=== PATIENT | female | born 1980 | race Hispanic/Latino ===

== ENCOUNTER → 2019-01-20 20:06 | Outpatient (REF) | payer MEDICARE, SELFPAY ==
[2019-01-20 20:33] LABS: Cholesterol 259 mg/dL (140-199); HDL Cholesterol 40 mg/dL (40-60); LDL Cholesterol Calculated 174 mg/dL (<100); Triglycerides 227 mg/dL (35-150)
== END ==
LOC: LAB 20:06
PROVIDERS: PCP Family Medicine; Visit Provider Physician Assistant Medical
DX: Z13.220 Encounter for screening for lipoid disorders (principal)
CPT/HCPCS: 36415; 80061

== ENCOUNTER 2021-06-29 16:56 | Emergency (ER) | payer MEDICARE, SELFPAY ==
[2021-06-29 17:24] VITALS: BP 137/86; PULSE 104; RESP 18; TEMP 36.3; O2SAT 99; BMI 42.7
--- NOTE | 2021-06-29 17:38 | DI.US.S_ITS ---
PROCEDURE: US PERIPH VENOUS LOW EXTREM RT INDICATIONS: RIGHT CALF LUMP TECHNIQUE: Real-time imaging, as well as color and pulse Doppler interrogation, were performed of the lower extremity deep veins from the inguinal ligament to the popliteal fossa. COMPARISON: None. FINDINGS: The common femoral, femoral and popliteal veins are normally compressible, and free of intraluminal thrombus. Color and pulse Doppler demonstrate normal phasic intraluminal flow. There is normal augmentation response to distal compression maneuver. Greater saphenous vein of the superficial venous system is thrombosed from the level inferior to the knee to the level of the mid calf. IMPRESSION: 1. No evidence of thrombosis involving the deep venous system of the right lower extremity. 2. Occlusive thrombus involving the right greater saphenous vein of the superficial venous system of the right lower extremity. Dictated by: Ann Marie Del Toro MD, PhD on 06/29/2021 at 18:39 Approved by: Ann Marie Del Toro MD, PhD on 06/29/2021 at 18:39
[2021-06-29] MEDS: ACETAMINOPHEN 325 MG TABLET 975 MG PO (19:34)
[2021-06-29] MEDS: APIXABAN 5 MG TABLET 10 MG PO (19:35)
--- NOTE | 2021-06-29 19:36 | ED.EXTPRO ---
HPI - Extremity Problem <Bridget Braker PA-C - Last Filed: 06/29/21 19:57> General Chief complaint: Extremity Problem,Nontraumatic Stated complaint: Poss DVT Time Seen by Provider: 06/29/21 17:32 Source: patient Mode of arrival: Family Vehicle Limitations: no limitations History of Present Illness HPI Narrative: 40-year-old female with past medical history bipolar disorder, varicose veins presents to the ED with 5 days of right calf pain. Patient reports that 1 of the superficial varicose veins started swelling up with pain and redness. Patient denies fever, chills, shortness of breath, chest pain, nausea, vomiting, lightheadedness, syncope. Denies any insect bites or other trauma at the site. Denies history of DVT, exogenous hormone use, prolonged immobilization, recent surgeries. Denies numbness, tingling, weakness. Endorses being able to bear weight and walk. Related Data Home Medications Medication Instructions Recorded Confirmed BusPIRone Hydrochloride (BUSPAR~) 5 mg PO TID #0 11/08/12 albuterol sulfate 2 mg tablet 2 mg PO #0 11/08/12 baclofen 10 mg tablet 10 mg PO QID #0 11/08/12 clonazepam 0.5 mg tablet 1 mg PO BID #0 11/08/12 fluoxetine 40 mg capsule (Prozac) 40 mg PO QDAY #0 11/08/12 gabapentin 600 mg tablet 600 mg PO #0 11/08/12 (Neurontin) ondansetron 8 mg disintegrating 8 mg PO TID #0 11/08/12 tablet (Zofran ODT) Previous Rx's Medication Instructions Recorded apixaban 5 mg (74 tabs) tablets in 10 mg PO PER PKG DIR 7 Days #14 ea 06/29/21 a dose pack (Eliquis DVT-PE Treat 30D Start) Allergies Allergy/AdvReac Type Severity Reaction Status Date / Time trazodone AdvReac Nightmare Verified 06/29/21 17:30 Review of Systems <Bridget Barker PA-C - Last Filed: 06/29/21 19:57> Constitutional Constitutional: Denies chills, Denies fever(s), Denies frequent falls, Denies lethargy and Denies weakness ENT Ears, Nose, Mouth, and Throat: Denies dizziness Cardiovascular Cardiovascular: Denies chest pain, Denies irregular heart rhythm, Denies lightheadedness, Denies palpitations, Denies dyspnea, Denies dyspnea on exertion and Denies orthopnea Respiratory Respiratory: Denies cough, Denies dyspnea, Denies dyspnea on exertion and Denies wheezing Gastrointestinal Gastrointestinal: Denies abdominal pain, Denies change in bowel habits, Denies diarrhea, Denies nausea and Denies vomiting Musculoskeletal Musculoskeletal: Denies numbness Comments: R calf pain, swelling. No numbness, tinglnig, weakness Integumentary/Breasts Skin/Breast: Denies pruritus, Denies erythema, Denies rash and Denies wounds Neurologic Neurologic: Denies behavioral changes, Denies confusion, Denies dizziness, Denies frequent falls, Denies numbness and Denies weakness Psychiatric Psychiatric: Denies behavioral changes and Denies confusion Endocrine Endocrine: Denies palpitations Hematologic/Lymphatic Hematologic/Lymphatic: Denies easy bruising Allergic/Immunologic Allergic/Immunologic: Denies wheezing Patient History <Bridget Barker PA-C - Last Filed: 06/29/21 19:57> Social History Smoking Status: Current every day smoker Smoking Status: Current every day smoker tobacco type: cigarettes alcohol intake frequency: 0-2 drinks per day Substance Use Type: does not use Exam <Bridget Barker PA-C - Last Filed: 06/29/21 19:57> Initial Vital Signs Initial Vital Signs: Vital Signs Temperature 97.4 F L 06/29/21 17:24 Pulse Rate 104 H 06/29/21 17:24 Respiratory Rate 18 06/29/21 17:24 Blood Pressure 137/86 06/29/21 17:24 Pulse Oximetry 99 06/29/21 17:24 Const General: cooperative Chest Chest: normal inspection of the chest Resp Effort & Inspection: normal respiratory effort, able to speak in complete sentences, no respiratory distress and no use of accessory muscles Auscultation: clear to auscultation bilaterally, no rales, no rhonchi and no wheezes Cardio Rate: regular rate Rhythm: regular rhythm Heart Sounds: no click, no gallops, no murmurs and no rubs Pulses: normal peripheral pulses GI Inspection: non-distended Palpation: soft, no hepatosplenomegaly, No guarding, No pulsatile mass and No tender Auscultation: normal bowel sounds Skin General: no rashes or lesions noted, No jaundice and No petechiae Neuro General: patient alert, patient oriented x3, gait normal and no focal motor deficits Speech: speech normal Extrem General: full ROM, no clubbing, cyanosis or edema, no pedal edema and no calf tenderness Other: Swelling, erythema, redness of medial right calf. No discharge. Neurovascularly intact. Cap refill less than 2 seconds. Psych Appearance: well kempt Mental Status: mental status grossly normal Attitude: cooperative Thought Content: normal and suicidality Judgment: judgment good <Travis Briggs DO - Last Filed: 06/30/21 00:35> Initial Vital Signs Initial Vital Signs: Vital Signs Temperature 97.4 F L 06/29/21 17:24 Pulse Rate 104 H 06/29/21 17:24 Respiratory Rate 18 06/29/21 17:24 Blood Pressure 137/86 06/29/21 17:24 Pulse Oximetry 99 06/29/21 17:24 Course <Bridget Barker PA-C - Last Filed: 06/29/21 19:57> Course Course Narrative: Ultrasound of the right lower extremity shows an occlusive thrombus of the right greater saphenous vein for from the level of the inferior to the knee to the level of the mid calf. Started anticoagulation with Eliquis, discharge home with PCP follow-up, prescription for Eliquis. Return ED precautions discussed with patient. Orders Ordered: ED Orders 06/29/21 17:38 US periph venous low extrem rt Stat Discontinued Medications Acetaminophen (Acetaminophen 325 Mg Tablet) 975 mg PO NOW ONE Stop: 06/29/21 19:11 Last Admin: 06/29/21 19:34 Dose: 975 mg Documented by: DAQUAN Apixaban (Apixaban 5 Mg Tablet) 10 mg PO NOW ONE Stop: 06/29/21 19:04 Last Admin: 06/29/21 19:35 Dose: 10 mg Documented by: DAQUAN Ibuprofen (Ibuprofen 400 Mg Tablet) 800 mg PO NOW ONE Stop: 06/29/21 19:11 Last Admin: 06/29/21 19:12 Dose: Not Given Documented by: DAQUAN Vital Signs Vital signs: Vital Signs - 8 hr 06/29/21 17:24 06/29/21 19:46 Temperature 97.4 F L Pulse Rate 104 H 86 Respiratory Rate 18 16 Blood Pressure 137/86 118/56 L Pulse Oximetry 99 91 <Travis Briggs DO - Last Filed: 06/30/21 00:35> Orders Ordered: ED Orders 06/29/21 17:38 perip venous low extrem rt Stat Discontinued Medications Acetaminophen (Acetaminophen 325 Mg Tablet) 975 mg PO NOW ONE Stop: 06/29/21 19:11 Last Admin: 06/29/21 19:34 Dose: 975 mg Documented by: DAQUAN Apixaban (Apixaban 5 Mg Tablet) 10 mg PO NOW ONE Stop: 06/29/21 19:04 Last Admin: 06/29/21 19:35 Dose: 10 mg Documented by: DAQUAN Ibuprofen (Ibuprofen 400 Mg Tablet) 800 mg PO NOW ONE Stop: 06/29/21 19:11 Last Admin: 06/29/21 19:12 Dose: Not Given Documented by: DAQUAN Vital Signs Vital signs: Vital Signs - 8 hr 06/29/21 17:24 06/29/21 19:46 Temperature 97.4 F L Pulse Rate 104 H 86 Respiratory Rate 18 16 Blood Pressure 137/86 118/56 L Pulse Oximetry 99 91 MDM - Extremity (Nontraumatic) <Bridget Barker PA-C - Last Filed: 06/29/21 19:57> Medical Records Attestation: I reviewed the patient's medical records. Imaging Data US - DVT: Radiologist's Impression: PROCEDURE: US [facility] VENOUS LOW EXTREM RT INDICATIONS: RIGHT CALF LUMP TECHNIQUE: Real-time imaging, as well as color and pulse Doppler interrogation, were performed of the lower extremity deep veins from the inguinal ligament to the popliteal fossa. COMPARISON: None. FINDINGS: The common femoral, femoral and popliteal veins are normally compressible, and free of intraluminal thrombus. Color and pulse Doppler demonstrate normal phasic intraluminal flow. There is normal augmentation response to distal compression maneuver. Greater saphenous vein of the superficial venous system is thrombosed from the level inferior to the knee to the level of the mid calf. IMPRESSION: 1. No evidence of thrombosis involving the deep venous system of the right lower extremity. 2. Occlusive thrombus involving the right greater saphenous vein of the superficial venous system of the right lower extremity. Dictated by: Ann Marie Del Toro MD, PhD on 06/29/2021 at 18:39 Approved by: Ann Marie Del Toro MD, PhD on 06/29/2021 at 18:39 [facility] Narrative Medical decision making narrative: 40-year-old female with past medical history bipolar disorder, varicose veins presents to the ED with 5 days of right calf pain. Concern for DVT versus superficial venous thrombosis versus abscess versus cellulitis. We will order ultrasound of the right lower extremity. Will reassess. Likely discharge home with PCP follow-up. Discharge Plan Departure Patient Disposition: Home Clinical Impression: Acute superficial venous thrombosis of right lower extremity Instructions: DI for Deep Vein Thrombosis Activity Restrictions/Additional Instructions: You have been diagnosed with a superficial venous thrombosis in the right lower leg, and do have been started on anticoagulation with Eliquis. You are to take 10 mg of Eliquis twice daily for 7 days, followed by 5 mg twice daily. For follow-up with your primary care provider as soon as possible for continued care. You may take Tylenol, use compression stockings for pain relief. Prescriptions: New Eliquis DVT-PE Treat 30D Start 5 mg (74 tabs) tablets,dose pack 10 mg PO PER PKG DIR 7 Days Qty: 14 RF: 0 No Action fluoxetine [Prozac] 40 MG capsule 40 mg PO QDAY Qty: 0 RF: 0 ondansetron [Zofran ODT] 8 MG tablet,disintegrating 8 mg PO TID Qty: 0 RF: 0 baclofen 10 MG tablet 10 mg PO QID Qty: 0 RF: 0 gabapentin [Neurontin] 600 MG tablet 600 mg PO Qty: 0 RF: 0 clonazepam 0.5 MG tablet 1 mg PO BID Qty: 0 RF: 0 BusPIRone Hydrochloride (BUSPAR~) 5 mg PO TID Qty: 0 RF: 0 albuterol sulfate 2 MG tablet 2 mg PO Qty: 0 RF: 0 Referrals: Radha Whitley FNP-BC [Primary Care Provider] - <Travis Briggs DO - Last Filed: 06/30/21 00:35> Cosign ED Attending Monikaature Attestation: I was immediately available in the department for consultation. This documentation has been reviewed and I agree with assessment and plan. Supervised by Travis Briggs DO
[2021-06-29 19:46] VITALS: BP 118/56; PULSE 86; RESP 16; O2SAT 91
== END 2021-06-29 19:47 | disposition home or self-care (01) ==
PROVIDERS: Emergency Provider Student in an Organized Health Care Education/Training Program; PCP Nurse Practitioner Family
DX: I82.811 Embolism and thrombosis of superficial veins of right lower extremity (principal)
CPT/HCPCS: 93971; 99283

== ENCOUNTER 2021-07-01 01:10 | Emergency (ER) | payer MEDICARE, MEDICAID, SELFPAY ==
[2021-07-01 01:45] VITALS: BP 118/57; PULSE 92; RESP 16; TEMP 36.6; O2SAT 99; BMI 41.3
--- NOTE | 2021-07-01 02:06 | ED.LOWEXIN ---
HPI - Extremity Injury (Lower) General Chief Complaint: Extremity Injury, Lower Stated Complaint: has dvt clot that's getting worse Time Seen by Provider: 07/01/21 02:04 Source: patient Mode of arrival: Ambulatory History of Present Illness HPI Narrative: Woman with history of anxiety, bipolar disorder and asthma diagnosed yesterday with the superficial saphenous thrombophlebitis of the right lower extremity and started on Eliquis returns today complaining of increased pain and concerns that the clot is spreading. Today she did have a compression sock but found that it was quite tight through most of the day. She was trying Tylenol and ice but the pain continues to worsen. 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 After starting Eliquis she is no longer able to use nonsteroidals. Related Data Home Medications Medication Instructions Recorded Confirmed BusPIRone Hydrochloride (BUSPAR~) 5 mg PO TID #0 11/08/12 albuterol sulfate 2 mg tablet 2 mg PO #0 11/08/12 baclofen 10 mg tablet 10 mg PO QID #0 11/08/12 clonazepam 0.5 mg tablet 1 mg PO BID #0 11/08/12 fluoxetine 40 mg capsule (Prozac) 40 mg PO QDAY #0 11/08/12 gabapentin 600 mg tablet 600 mg PO #0 11/08/12 (Neurontin) ondansetron 8 mg disintegrating 8 mg PO TID #0 11/08/12 tablet (Zofran ODT) Previous Rx's Medication Instructions Recorded apixaban 5 mg (74 tabs) tablets in 10 mg PO PER PKG DIR 7 Days #14 ea 06/29/21 a dose pack (Eliquis DVT-PE Treat 30D Start) tramadol 50 mg tablet 50 mg PO Q6H PRN #10 tab 07/01/21 Allergies Allergy/AdvReac Type Severity Reaction Status Date / Time trazodone AdvReac Nightmare Verified 06/29/21 17:30 Review of Systems Review of Systems Narrative: Pertinent positive and negative findings as per HPI Remainder of review of systems is otherwise unremarkable for Constitutional: Fevers, chills, weakness ENT: No sore throat, neck pain, ear pain CV: Chest pain, palpitations, Respiratory: Cough, wheeze, dyspnea GI: Nausea, vomiting, diarrhea, Patient History Medical History (Updated 07/01/21 @ 03:14 by Shelby Milian MD) Anxiety Bipolar 1 disorder Social History Smoking Status: Current every day smoker Smoking Status: Current every day smoker tobacco type: cigarettes alcohol intake frequency: 0-2 drinks per day Substance Use Type: does not use Exam Narrative Exam Narrative: General: Alert appropriate in no acute distress Respiratory: Able to speak in full sentences, no obvious respiratory distress Skin: No obvious rashes, warm and dry Neurologic: Grossly intact no obvious asymmetries or abnormalities Psych: appropriate insight and affect, cooperative Extremity: Superficial thrombophlebitis of the right lower extremity without cellulitis. Initial Vital Signs Initial Vital Signs: Vital Signs Temperature 97.8 F 07/01/21 01:45 Pulse Rate 92 H 07/01/21 01:45 Respiratory Rate 16 07/01/21 01:45 Blood Pressure 118/57 L 07/01/21 01:45 Pulse Oximetry 99 07/01/21 01:45 Course Orders Ordered: Discontinued Medications Acetaminophen (Acetaminophen 325 Mg Tablet) 650 mg PO Q4HR PRN PRN Reason: Fever/Mild Pain (1-3) Last Admin: 07/01/21 02:35 Dose: 650 mg Documented by: Tramadol HCl (Tramadol 50 Mg Tablet) 50 mg PO NOW ONE Stop: 07/01/21 02:21 Last Admin: 07/01/21 02:36 Dose: 50 mg Documented by: Vital Signs Vital signs: Vital Signs - 8 hr 07/01/21 01:45 Temperature 97.8 F Pulse Rate 92 H Respiratory Rate 16 Blood Pressure 118/57 L Pulse Oximetry 99 MDM - Extremity Injury (Lower) MDM Narrative Medical decision making narrative: 40-year-old woman with superficial thrombophlebitis. Increased concerns and pain. Reviewed anticipated course of recovery as well as pain and swelling expectations. Recommended tramadol and Tylenol for the 1st couple of days, continued compression socks, heat and gentle massage. Reassured her that these clots were not associated with pulmonary emboli, strokes or heart attacks. Questions were answered and she is safe for home discharge Discharge Plan Departure Patient Disposition: Home Clinical Impression: Acute superficial venous thrombosis of right lower extremity Activity Restrictions/Additional Instructions: Thank you for coming in today You have a superficial thrombophlebitis, a blood clot in the superficial venous system of your leg. These are not the type of clots that will cause blood clots in your lungs, heart attacks or strokes. They do hurt however. Using the compression sock is your able to tolerate, elevating her leg as your able to tolerate are all helpful. Please try heat to the area to try to help break down the blood clot. With the swelling that you are having am not surprised that there was a bit more pain in your upper thigh. The Eliquis that you are on helps prevent the clot from growing. You can use Tylenol for pain control and to this we can add tramadol. Taking 2 Tylenol and 1 tramadol together should be helpful with pain. While you are on the blood thinner you cannot take medications like aspirin, ibuprofen, Motrin, Aleve. It will take a bit of time for this blood clot to breakdown but the pain will continue to improve. Prescriptions: New tramadol 50 mg tablet 50 mg PO Q6H PRN (Reason: pain) Qty: 10 RF: 0 No Action fluoxetine [Prozac] 40 MG capsule 40 mg PO QDAY Qty: 0 RF: 0 ondansetron [Zofran ODT] 8 MG tablet,disintegrating 8 mg PO TID Qty: 0 RF: 0 baclofen 10 MG tablet 10 mg PO QID Qty: 0 RF: 0 gabapentin [Neurontin] 600 MG tablet 600 mg PO Qty: 0 RF: 0 clonazepam 0.5 MG tablet 1 mg PO BID Qty: 0 RF: 0 BusPIRone Hydrochloride (BUSPAR~) 5 mg PO TID Qty: 0 RF: 0 albuterol sulfate 2 MG tablet 2 mg PO Qty: 0 RF: 0 Eliquis DVT-PE Treat 30D Start 5 mg (74 tabs) tablets,dose pack 10 mg PO PER PKG DIR 7 Days Qty: 14 RF: 0 Referrals: Radha Whitley FNP-HEATHER [Primary Care Provider] -
[2021-07-01] MEDS: ACETAMINOPHEN 325 MG TABLET 650 MG PO (02:35)
[2021-07-01] MEDS: TRAMADOL 50 MG TABLET PO (02:36)
== END 2021-07-01 02:43 | disposition home or self-care (01) ==
PROVIDERS: Emergency Provider Emergency Medicine; PCP Nurse Practitioner Family
DX: I82.811 Embolism and thrombosis of superficial veins of right lower extremity (principal); Z79.01 Long term (current) use of anticoagulants
CPT/HCPCS: 99283

== ENCOUNTER → 2021-07-09 09:15 | Outpatient (CLI) | payer MEDICARE, SELFPAY ==
[2021-07-09 20:21] LABS: Add Manual Diff / Slide Review NO; Basophils Absolute Auto 100 /uL (0-100); Basophils Percent Auto 0.6 % (0-2); Eosinophils Absolute Auto 500 /uL (0-450); Eosinophils Percent Auto 3.3 % (2-4); Hematocrit 44.7 % (36-46); Hemoglobin 14.9 g/dL (12.0-16.0); Lymphocytes Absolute Auto 3200 /uL (1100-4500); Lymphocytes Percent Auto 22.4 % (25-40); Mean Corpuscular HGB Conc 33.4 % (30-36); Mean Corpuscular Hemoglobin 29.9 PG (26-34); Mean Corpuscular Volume 89.3 fL (80-100); Monocytes Absolute Auto 500 /uL (0-900); Monocytes Percent Auto 3.4 % (3-14); Neutrophils Absolute Auto 10000 /uL (1500-7000); Neutrophils Percent Auto 70.3 % (50-75); Platelet Count 279 X10^3/uL (150-400); Red Cell Distribution Width 14.1 % (11.6-14.8); White Blood Cell Count 14.3 X10^3/uL (4.5-11.0)
[2021-07-09 20:30] LABS: Alanine Aminotransferase 22 IU/L (<35); Albumin 3.8 g/dL (3.5-5.0); Albumin Globulin Ratio 1.2 (1.0-2.8); Alkaline Phosphatase 113 U/L (38-126); Aspartate Aminotransferase 22 IU/L (14-36); BUN Creatinine Ratio 29.7 (6-22); Bilirubin Total 0.4 mg/dL (0.2-1.3); Blood Urea Nitrogen 22 mg/dL (7-17); Calcium 9.3 mg/dL (8.4-10.2); Carbon Dioxide 25 mmol/L (22-32); Chloride 104 mmol/L (98-107); Estimated Glomerular Filt Rate > 60.0 mL/min (>60); Globulin 3.3 g/dL (1.7-4.1); Glucose 115 mg/dL (70-100); HEMOLYSIS < 15 (0-50); Potassium 3.9 mmol/L (3.4-5.1); Sodium 136 mmol/L (137-145); Total Protein 7.1 g/dL (6.3-8.2)
[2021-07-12 14:55] LABS: Factor VIII Activity, Clotting 112 % (56-140)
== END ==
PROVIDERS: PCP Nurse Practitioner Family; Visit Provider Family Medicine
DX: S62.308A Unspecified fracture of other metacarpal bone, initial encounter for closed fracture (principal); I82.811 Embolism and thrombosis of superficial veins of right lower extremity; E78.5 Hyperlipidemia, unspecified
CPT/HCPCS: 80053; 81241; 83036; 85025; 85240

== ENCOUNTER 2022-07-22 20:00 | Emergency (ER) | payer MEDICARE, MEDICAID, SELFPAY ==
[2022-07-22 20:12] VITALS: BP 151/73; PULSE 96; RESP 20; TEMP 36.9; O2SAT 97; BMI 41.0
--- NOTE | 2022-07-22 20:20 | DI.US.S_ITS ---
PROCEDURE: US PERIPH VENOUS LOW EXTREM LT INDICATIONS: r/o DVT TECHNIQUE: Real-time imaging, as well as color and pulse Doppler interrogation, were performed of the lower extremity deep veins from the inguinal ligament to the popliteal fossa. COMPARISON: None. FINDINGS: The common femoral, femoral and popliteal veins are normally compressible, and free of intraluminal thrombus. Color and pulse Doppler demonstrate normal phasic intraluminal flow. There is normal augmentation response to distal compression maneuver. IMPRESSION: 1. No evidence of deep venous thrombosis within the left lower extremity. Dictated by: Yobani Olivia M.D. on 07/22/2022 at 22:40 Approved by: Yobani Olivia M.D. on 07/22/2022 at 22:41
--- NOTE | 2022-07-22 20:34 | PC.NURSE ---
pt states after getting the covid vaccine one year ago, she started having blood clots. she was put on eliquis which she has stopped taking in the last 3 weeks because she is tired of having to take it. she was told it would be for 3 months only and it has now been a year. pt states she gets blood clots in her saphenous vein on her right leg and today she is having the same symptoms on her left leg. there is a raised varicose vein along on the inner aspect of the calf with some bruising distally. it is not warm to the touch or red.
--- NOTE | 2022-07-22 21:19 | ED.EXTPRO ---
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 She was diagnosed here 1 year ago thought to be from Moderna COVID vaccine. She said that she has had 2 clot she has been seen by Hematology she has been on Eliquis. However she was tired of being on Eliquis and stopped Eliquis about 6 weeks. The last 3 days she has had some leg cramping and pain. Wants to make sure that there is no other clot. She does have fibromyalgia she has chronic ongoing pain. She denies any chest pain shortness of breath or any other symptoms. Related Data Home Medications Medication Instructions Recorded Confirmed apixaban 5 mg tablet (Eliquis) See Rx Instructions .Route .COMPLEX 07/10/21 07/17/21 albuterol sulfate 2.5 mg/3 mL 2.5 mg inhalation Q4-6H PRN 07/17/21 07/17/21 (0.083 %) solution for nebulization gabapentin 600 mg tablet 300 mg PO TID #0 tabs 07/17/21 07/17/21 (Neurontin) Previous Rx's Medication Instructions Recorded diazepam 10 mg tablet (Valium) 10 mg PO BEDTIME PRN anxiety 30 07/09/21 days #15 tabs atorvastatin 40 mg tablet (Lipitor) 40 mg PO DAILY #90 tabs 07/17/21 Allergies Allergy/AdvReac Type Severity Reaction Status Date / Time trazodone AdvReac Nightmare Verified 06/29/21 17:30 Review of Systems Review of Systems Narrative: GENERAL: Denies chills,fever HEENT: Denies throat pain RESPIRATORY: Denies dyspnea, cough, wheezing CARDIOVASCULAR: Denies chest pain, palpitations GASTROINTESTINAL: Denies nausea, vomiting MUSCULOSKELETAL: See HPI SKIN: No rash, no laceration, no pruritus NEUROLOGIC: Denies weakness, dizziness, headache, numbness 8 point review of systems is negative except for those stated above and HPI Patient History Medical History Anxiety Bipolar 1 disorder DVT (deep venous thrombosis) Social History Smoking Status: Current every day smoker Smoking Status: Current every day smoker tobacco type: cigarettes alcohol intake frequency: 0-2 drinks per day Substance Use Type: marijuana Exam Initial Vital Signs Initial Vital Signs: Vital Signs Temperature 98.5 F 07/22/22 20:12 Pulse Rate 96 H 07/22/22 20:12 Respiratory Rate 20 07/22/22 20:12 Blood Pressure 151/73 H 07/22/22 20:12 Pulse Oximetry 97 07/22/22 20:12 Oxygen Delivery Method 07/22/22 20:12 GENERAL: Alert pleasant 42-year-old female and in no acute distress. HEENT: Head atraumatic,EOMI, pupils reactive, face symmetric, moist mucous membranes CARDIOVASCULAR: Regular rate and rhythm without murmurs, rubs or gallops. RESPIRATORY: Breath sounds equal bilaterally, no wheezes rales or rhonchi. EXTREMITIES: Normal range of motion, no clubbing or edema. Neurovascularly intact Lower extremities she actually does have some darkening along the vein of her right leg. She has varicose veins on the left. No significant calf pain or swelling. No erythema. Bilateral strong distal pedal pulses. NEUROLOGICAL: Alert and oriented x4. SKIN: Warm, dry, no laceration, no petechiae, no rashes or lesions. Course Orders Ordered: ED Orders 07/22/22 20:20 US periph venous low extrem lt Stat Discontinued Medications Cyclobenzaprine HCl (Cyclobenzaprine 10 Mg Prepack) 1 bottle [facility] [place] [facility] Stop: 07/22/22 21:43 Last Admin: 07/22/22 21:57 Dose: 1 bottle Documented By: NR Vital Signs Vital signs: Vital Signs - 8 hr 07/22/22 20:12 Temperature 98.5 F Pulse Rate 96 H Respiratory Rate 20 Blood Pressure 151/73 H Pulse Oximetry 97 Oxygen Delivery Method Room Air MDM - Extremity (Nontraumatic) Imaging Data US - DVT: Radiologist's Impression: Ultrasound Report Signed Patient: Cara Bone MR#: [id number] : 1980 Acct:[id number] Age/Sex: 42 / F Date of Service: 07/22/22 Loc: ED Accession Number: [id number] ?? Procedure: US periph venous low extrem lt Ordering Provider: Blanca Huntley D.O. PROCEDURE:? US PERIPH VENOUS LOW EXTREM LT ? INDICATIONS:? r/o DVT ? TECHNIQUE:? Real-time imaging, as well as color and pulse Doppler interrogation, were performed of the lower extremity deep veins from the inguinal ligament to the popliteal fossa.? ? COMPARISON:? None. ? FINDINGS:? The common femoral, femoral and popliteal veins are normally compressible, and free of intraluminal thrombus.? Color and pulse Doppler demonstrate normal phasic intraluminal flow.? There is normal augmentation response to distal compression maneuver. ? ? IMPRESSION:? ? 1. No evidence of deep venous thrombosis within the left lower extremity. ? ? Dictated by: Yobani Olivia M.D. on 07/22/2022 at 22:40 ? ? Approved by: Yobani Olivia M.D. on 07/22/2022 at 22:41 ? MDM Narrative Medical decision making narrative: The patient has history of superficial thrombosis she stop taking her Eliquis 6 weeks ago. Today she is having pain. She has no significant calf pain or swelling in either leg. Ultrasound is negative for DVT today. She is requesting muscle relaxer such as cyclobenzaprine which I am happy to give her. She is not wanting any pain medication. At this he can follow-up with her providers and discussion of her plan and treatment. Discharge Plan Departure Patient Disposition: Home Clinical Impression: Leg muscle spasm Instructions: DI for Muscle Spasm Activity Restrictions/Additional Instructions: *You have been diagnosed with muscle and leg spasm *What to do: At this time no clot is found. Please discuss with your oncologist about your Eliquis. *Continue to take medications as directed Ibuprofen 800 mg every 8 hours if needed for [id number] pain (as long as you are not taking Eliquis) Flexeril 5 mg every 8 hours if needed for muscle spasm *Follow up with your primary care provider in 2-3 days or call [phone] *Return to ER if you should have an swelling redness or any new, worsening or concerning symptoms Prescriptions: No Action Eliquis 5 mg tablet See Rx Instructions .ROUTE .COMPLEX Rx Instructions: 2 tablets BID for 7 days then 1 tablet BID for 23 days; gabapentin [Neurontin] 600 mg tablet 300 mg PO TID Qty: 0 diazepam [Valium] 10 mg tablet 10 mg PO BEDTIME PRN (Reason: anxiety) 30 Days Qty: 15 2RF albuterol sulfate 2.5 mg /3 mL (0.083 %) solution for nebulization 2.5 mg inhalation Q4-6H PRN atorvastatin [Lipitor] 40 mg tablet 40 mg PO DAILY Qty: 90 1RF Referrals: Jesse Davies DO [Primary Care Provider] - Visit Report Forms: Patient Portal/API
[2022-07-22] MEDS: CYCLOBENZAPRINE 10 MG PREPACK 1 BOTTLE MISC (21:57)
== END 2022-07-22 23:10 | disposition home or self-care (01) ==
PROVIDERS: Emergency Provider Emergency Medicine; PCP Family Medicine
DX: M62.831 Muscle spasm of calf (principal)
CPT/HCPCS: 93971; 99281; 99283

== ENCOUNTER 2023-04-16 18:26 | Emergency (ER) | payer MEDICARE, MEDICAID, SELFPAY ==
[2023-04-16 18:28] VITALS: BP 137/79; PULSE 108; RESP 97; TEMP 36.7; BMI 41.3
--- NOTE | 2023-04-16 18:35 | DI.RAD.S_ITS ---
PROCEDURE: XR CHEST 1V INDICATIONS: Shortness of breath TECHNIQUE: One view of the chest was acquired. COMPARISON: None. FINDINGS: Surgical changes and devices: None. Lungs and pleura: Diffuse interstitial prominence. Mild loss of vascular distinctness. Mild central vascular congestion. No focal consolidation. No pneumothorax or substantial pleural effusion. Mediastinum: Mediastinal contours appear normal. Heart size is enlarged. Bones and chest wall: No suspicious bony lesions. Overlying soft tissues appear unremarkable. IMPRESSION: Mild cardiomegaly with findings suggestive of mild pulmonary edema/CHF. An infectious or inflammatory process may have a similar appearance if clinically appropriate. No focal consolidation. Dictated by: Zenon Dent M.D. on 04/16/2023 at 19:15 Approved by: Zenon Dent M.D. on 04/16/2023 at 19:15
--- NOTE | 2023-04-16 18:44 | ED_ITS ---
HPI - SOB/Dyspnea General Chief Complaint: Shortness of Breath/Dyspnea Stated Complaint: SOB Time Seen by Provider: 04/16/23 18:42 Source: patient Mode of arrival: Ambulatory History of Present Illness HPI Narrative: 42-year-old female daily smoker with known right lower extremity DVT, hyperlipidemia, seasonal allergies presents with shortness of breath and cough that has been present since the beginning of March. She denies any fever or chills. She is had no trauma or injury. She has had prior DVTs were thought to be related to COVID vaccines. She had presented to her primary care provider with a chief complaint of swelling in her lower extremities, had a positive D- dimer and ultrasound confirming a nonocclusive DVT in her right lower extremity and has been on apixaban. She presents today under circumstances as noted for evaluation. She denies chest pain but has had some burning in her chest and metallic taste in the back of her mouth that seems to improve with [id number] antacids for the better part of a week. She is had multiple rounds of antibiotics to treat this cough, also 2 rounds of steroids. She denies weight gain, exertional symptoms, exercise intolerance. She is had runny nose, nasal congestion, bilateral ear fullness Related Data Home Medications Medication Instructions Recorded Confirmed apixaban 5 mg tablet (Eliquis) See Rx Instructions .Route .COMPLEX 07/10/21 07/17/21 albuterol sulfate 2.5 mg/3 mL 2.5 mg inhalation Q4-6H PRN 07/17/21 07/17/21 (0.083 %) solution for nebulization gabapentin 600 mg tablet 300 mg PO TID #0 tabs 07/17/21 07/17/21 (Neurontin) Previous Rx's Medication Instructions Recorded diazepam 10 mg tablet (Valium) 10 mg PO BEDTIME PRN anxiety 30 07/09/21 days #15 tabs atorvastatin 40 mg tablet (Lipitor) 40 mg PO DAILY #90 tabs 07/17/21 furosemide 40 mg tablet (Lasix) 40 mg PO DAILY #4 tabs 04/16/23 Allergies Allergy/AdvReac Type Severity Reaction Status Date / Time shellfish derived Allergy Swelling Verified 04/16/23 18:35 of Lip/Tongue/Throat trazodone AdvReac Nightmare Verified 06/29/21 17:30 Review of Systems Review of Systems Narrative: GENERAL: See HPI HEENT: See HPI RESPIRATORY: See HPI CARDIOVASCULAR: See HPI GASTROINTESTINAL: Denies nausea, vomiting, abdominal pain, diarrhea, constipation, melena. : Denies dysuria, frequency, incontinence, hematuria, urinary retention. MUSCULOSKELETAL: denies weakness, joint pain, or bony pain SKIN: Denies rash, skin lesions, or other NEUROLOGIC: Denies weakness, headache, numbness, change in speech, confusion, seizures, incoordination. PSYCHIATRIC: No concerning psychosocial issues. 12 point review of systems is negative except for those stated above Patient History Medical History Anxiety Bipolar 1 disorder DVT (deep venous thrombosis) Social History Smoking Status: Current every day smoker Smoking Status: Current every day smoker tobacco type: cigarettes alcohol intake frequency: 0-2 drinks per day Substance Use Type: does not use Exam Narrative Exam Narrative: GENERAL: [42] year old patient appears stated age. Well-developed patient, in mild distress. No hypoxemia or significant work of breathing HEAD: Atraumatic. Normocephalic. EYES: Pupils equal round and reactive. Extraocular motions intact. No scleral icterus. No injection or drainage. ENT: Nose without bleeding, purulent drainage. Throat without erythema, tonsillar hypertrophy or exudate. Airway patent. NECK: Trachea midline. Non tender CARDIOVASCULAR: Regular rate and rhythm without murmurs, gallops, or rubs. RESPIRATORY: No tachypnea, use of accessory muscles. Faint crackles noted in bases, no hypoxemia GASTROINTESTINAL: Abdomen soft, non-tender, nondistended. EXTREMITIES: 1+ pitting edema bilateral lower extremities BACK: Nontender without deformity or crepitance. No flank tenderness. NEURO: AOx3. SKIN: No rash or erythema of visible areas Initial Vital Signs Initial Vital Signs: Vital Signs Temperature 98.1 F 04/16/23 18:28 Pulse Rate 108 H 04/16/23 18:28 Respiratory Rate 97 H 04/16/23 18:28 Blood Pressure 137/79 04/16/23 18:28 Oxygen Delivery Method Room Air 04/16/23 18:28 Course Orders Ordered: Discontinued Medications Albuterol/Ipratropium (Albuterol/Ipratropium 3 Ml Ampul) 3 ml INH NOW ONE Stop: 04/16/23 20:23 Last Admin: 04/16/23 20:28 Dose: 3 ml Documented By: JOSELO Furosemide (Furosemide 40 Mg/4 Ml Vial) 40 mg IV NOW ONE Stop: 04/16/23 21:03 Last Admin: 04/16/23 21:28 Dose: 40 mg Documented By: PHILIPP Vital Signs Vital signs: Vital Signs - 8 hr 04/16/23 18:28 04/16/23 20:28 04/16/23 20:46 Temperature 98.1 F Pulse Rate 108 H 90 Respiratory Rate 97 H 16 Blood Pressure 137/79 137/63 Pulse Oximetry 96 Oxygen Delivery Method Room Air Room Air Room Air MDM - SOB/Dyspnea Lab Data 04/16/23 19:00 04/16/23 19:00 Labs: Lab Results 04/16/23 04/16/23 04/16/23 Range/Units 19:00 19:00 19:00 WBC 11.6 H (4.5-11.0) X10^3/uL RBC 4.50 (4.0-5.2) X10^6/uL Hgb 13.6 (12.0-16.0) g/dL Hct 38.9 (36-46) % MCV 86.4 (80-100) fL MCH 30.2 (26-34) PG MCHC 34.9 (30-36) % RDW 13.7 (11.6-14.8) % Plt Count 222 (150-400) X10^3/uL Neut % (Auto) 64.3 (50-75) % Lymph % (Auto) 24.2 L (25-40) % [place] % (Auto) 5.4 (3-14) % Eos % (Auto) 5.7 H (2-4) % Baso % (Auto) 0.4 (0-2) % Neut # (Auto) 7500 H (9897-7556) /uL Lymph # (Auto) 2800 (7828-6970) /uL [place] # (Auto) 600 (0-900) /uL Eos # (Auto) 700 H (0-450) /uL Baso # (Auto) 0 (0-100) /uL PT 11.2 (10.1-12.7) SECONDS INR 1.0 (0.9-1.3) Sodium 135 L (137-145) mmol/L Potassium 3.7 (3.4-5.1) mmol/L Chloride 104 (98-107) mmol/L Carbon Dioxide 25 (22-32) mmol/L BUN 15 (7-17) mg/dL Creatinine 0.84 (0.52-1.04) mg/dL Estimated GFR > 60 (>60) mL/min BUN/Creatinine Ratio 17.9 (6-22) Glucose 114 H (70-100) mg/dL Lactate (0.7-2.1) mmol/L Calcium 8.6 (8.4-10.2) mg/dL Total Bilirubin 0.5 (0.2-1.3) mg/dL AST 22 (14-36) IU/L ALT 29 (<35) IU/L Alkaline Phosphatase 95 (38-126) U/L Troponin I < 0.012 (0.01-0.034) ng/mL NT-Pro-B Natriuret Pep 138 H (<125) pg/mL Total Protein 6.7 (6.3-8.2) g/dL Albumin 3.4 L (3.5-5.0) g/dL Globulin 3.3 (1.7-4.1) g/dL Albumin/Globulin Ratio 1.0 (1.0-2.8) Chlamy pneumoniae PCR (Not Detect) Adenovirus (PCR) (Not Detect) B. pertussis DNA (PCR) (Not Detecte) B.parapertussis DNA PCR (Not Detecte) Coronavirus OC43 (PCR) (Not Detect) Coronavirus HKU1 (PCR) (Not Detect) Coronavirus 229E (PCR) (Not Detect) SARS-CoV-2 (PCR) (Not Detecte) Coronavirus NL63 (PCR) (Not Detect) Human Metapneumovir PCR (Not Detect) Influenza Type A (PCR) (Not Detect) Influenza Type B (PCR) (Not Detect) M. pneumoniae (PCR) (Not Detect) Parainfluenza 1 (PCR) (Not Detect) Parainfluenza 2 (PCR) (Not Detect) Parainfluenza 3 (PCR) (Not Detect) Parainfluenza 4 (PCR) (Not Detect) RSV (PCR) (Not Detect) Entero/Rhino (PCR) (Not Detect) 04/16/23 04/16/23 Range/Units 19:00 20:51 WBC (4.5-11.0) X10^3/uL RBC (4.0-5.2) X10^6/uL Hgb (12.0-16.0) g/dL Hct (36-46) % MCV (80-100) fL MCH (26-34) PG MCHC (30-36) % RDW (11.6-14.8) % Plt Count (150-400) X10^3/uL Neut % (Auto) (50-75) % Lymph % (Auto) (25-40) % [place] % (Auto) (3-14) % Eos % (Auto) (2-4) % Baso % (Auto) (0-2) % Neut # (Auto) (9042-5944) /uL Lymph # (Auto) (4318-8272) /uL [place] # (Auto) (0-900) /uL Eos # (Auto) (0-450) /uL Baso # (Auto) (0-100) /uL PT (10.1-12.7) SECONDS INR (0.9-1.3) Sodium (137-145) mmol/L Potassium (3.4-5.1) mmol/L Chloride (98-107) mmol/L Carbon Dioxide (22-32) mmol/L BUN (7-17) mg/dL Creatinine (0.52-1.04) mg/dL Estimated GFR (>60) mL/min BUN/Creatinine Ratio (6-22) Glucose (70-100) mg/dL Lactate 1.5 (0.7-2.1) mmol/L Calcium (8.4-10.2) mg/dL Total Bilirubin (0.2-1.3) mg/dL AST (14-36) IU/L ALT (<35) IU/L Alkaline Phosphatase (38-126) U/L Troponin I (0.01-0.034) ng/mL NT-Pro-B Natriuret Pep (<125) pg/mL Total Protein (6.3-8.2) g/dL Albumin (3.5-5.0) g/dL Globulin (1.7-4.1) g/dL Albumin/Globulin Ratio (1.0-2.8) Chlamy pneumoniae PCR Not detected (Not Detect) Adenovirus (PCR) Not detected (Not Detect) B. pertussis DNA (PCR) Not detected (Not Detecte) B.parapertussis DNA PCR Not detected (Not Detecte) Coronavirus OC43 (PCR) Not detected (Not Detect) Coronavirus HKU1 (PCR) Not detected (Not Detect) Coronavirus 229E (PCR) Not detected (Not Detect) SARS-CoV-2 (PCR) Not detected (Not Detecte) Coronavirus NL63 (PCR) Not detected (Not Detect) Human Metapneumovir PCR Not detected (Not Detect) Influenza Type A (PCR) Not detected (Not Detect) Influenza Type B (PCR) Not detected (Not Detect) M. pneumoniae (PCR) Not detected (Not Detect) Parainfluenza 1 (PCR) Not detected (Not Detect) Parainfluenza 2 (PCR) Not detected (Not Detect) Parainfluenza 3 (PCR) Not detected (Not Detect) Parainfluenza 4 (PCR) Not detected (Not Detect) RSV (PCR) Not detected (Not Detect) Entero/Rhino (PCR) Not detected (Not Detect) MDM Narrative Medical decision making narrative: [42] year old patient presents with shortness of breath and cough Multiple etiologies for patient's symptoms considered including, but not limited to: [Atypical pneumonia versus CHF versus pulmonary embolism versus other] Prior Charts reviewed in our EMR Primary Historian: patient Labs reviewed and interpreted by myself: Slight leukocytosis without true left shift, no signs of anemia Imaging reviewed: Chest x-ray demonstrates mild cardiomegaly and mild CHF. Chest CT demonstrates no acute PE, no right heart strain, no acute car diopulmonary abnormalities. Small pericardial effusion, likely physiologic. Consultations: Patient's symptoms improved over duration of stay with above-stated therapies. Findings and discharge diagnosis discussed with patient/family followed by verbalization of understanding Return precautions discussed with patient/family whom verbalize understanding of diagnosis and plan Discharge Plan Departure Patient Disposition: Home Clinical Impression: Acute dyspnea, CHF (congestive heart failure), Cough, Adrenal nodule Instructions: DI for Heart Failure, DI for Cough -- Adult Activity Restrictions/Additional Instructions: *You have been diagnosed with [cough and shortness of breath] *What to do: *Please continue to take your regular medications as directed. [ x] New medication prescriptions sent to your pharmacy: [ Wednesday] [ ] New medication written as a paper prescription [ ] No new medications given *Please follow up with your primary care provider in 2-3 days, call for an appointment. Let them know you were seen in the Emergency Department and that we ask that you be seen in follow up. We will electronically transmit a record of today's note if your PCP is in our system *Return to Emergency Department if you should have any new, worsening or concerning symptoms, such as [fever greater than 101 F, shaking chills, worsening pain, persistent vomiting or other bothersome symptoms] Prescriptions: New furosemide [Lasix] 40 mg tablet 40 mg PO DAILY Qty: 4 0RF No Action Eliquis 5 mg tablet See Rx Instructions .ROUTE .COMPLEX Rx Instructions: 2 tablets BID for 7 days then 1 tablet BID for 23 days; gabapentin [Neurontin] 600 mg tablet 300 mg PO TID Qty: 0 diazepam [Valium] 10 mg tablet 10 mg PO BEDTIME PRN (Reason: anxiety) 30 Days Qty: 15 2RF albuterol sulfate 2.5 mg /3 mL (0.083 %) solution for nebulization 2.5 mg inhalation Q4-6H PRN atorvastatin [Lipitor] 40 mg tablet 40 mg PO DAILY Qty: 90 1RF Referrals: Jesse Davies DO [Primary Care Provider] - Stand Alone Forms: Patient Portal/API
--- NOTE | 2023-04-16 18:44 | DI.CT.S_ITS ---
PROCEDURE: CT ANGIO CHEST PE PROTOCOL INDICATIONS: CP, SOB, known DVT TECHNIQUE: After the administration of intravenous contrast, 2 mm thick sections acquired from the pulmonary apices to the posterior costophrenic angles. 3-dimensional maximum intensity projection (MIP) coronal and sagittal reformats were then acquired through the thorax. For radiation dose reduction, the following was used: automated exposure control, adjustment of mA and/or kV according to patient size. COMPARISON: [facility], CR, XR CHEST 1V, 04/16/2023, 18:38. FINDINGS: Image quality: Excellent. Pulmonary arteries: Pulmonary arteries are normal in size, and demonstrate no intraluminal filling defects to suggest central pulmonary embolism. Lungs and pleura: Lungs are clear. No pleural effusions or pneumothorax. Central and peripheral airways are patent. No septal thickening or nodularity. Mediastinum: Heart size is within normal limits. Trace pericardial effusion likely physiologic. No mediastinal or hilar adenopathy. Thoracic aorta is normal in caliber and enhancement. Esophagus is normal in caliber, without hiatal hernia. No evidence for acute right-sided heart strain. Bones and chest wall: No suspicious bony lesions. Ribs and thoracic spine appear intact throughout. Thyroid gland is unremarkable. No axillary or supraclavicular adenopathy. Abdomen: Mild hepatosplenomegaly. There is a 2.2 cm low-attenuation nodule in the right adrenal gland measuring 10 Hounsfield units. This is likely an adrenal adenoma. Remainder of the visualized upper abdominal solid organs and bowel loops appear unremarkable. IMPRESSION: No acute pulmonary embolus identified. No evidence for acute right-sided heart strain. No acute cardiopulmonary abnormalities identified to explain patient's symptoms. Small pericardial effusion, likely physiologic. A 2.2 cm right adrenal nodule likely representing an adenoma. Mild hepatosplenomegaly. Dictated by: Zenon Dent M.D. on 04/16/2023 at 19:37 Approved by: Zenon Dent M.D. on 04/16/2023 at 19:43
[2023-04-16 19:07] LABS: Add Manual Diff / Slide Review NO; Basophils Absolute Auto 0 /uL (0-100); Basophils Percent Auto 0.4 % (0-2); Eosinophils Absolute Auto 700 /uL (0-450); Eosinophils Percent Auto 5.7 % (2-4); Hematocrit 38.9 % (36-46); Hemoglobin 13.6 g/dL (12.0-16.0); Lymphocytes Absolute Auto 2800 /uL (1100-4500); Lymphocytes Percent Auto 24.2 % (25-40); Mean Corpuscular HGB Conc 34.9 % (30-36); Mean Corpuscular Hemoglobin 30.2 PG (26-34); Mean Corpuscular Volume 86.4 fL (80-100); Monocytes Absolute Auto 600 /uL (0-900); Monocytes Percent Auto 5.4 % (3-14); Neutrophils Absolute Auto 7500 /uL (1500-7000); Neutrophils Percent Auto 64.3 % (50-75); Platelet Count 222 X10^3/uL (150-400); Red Cell Distribution Width 13.7 % (11.6-14.8); White Blood Cell Count 11.6 X10^3/uL (4.5-11.0)
[2023-04-16 19:14] LABS: Prothrombin Time 11.2 SECONDS (10.1-12.7)
[2023-04-16 19:19] LABS: Lactate (Lactic Acid) 1.5 mmol/L (0.7-2.1)
[2023-04-16 19:20] LABS: Alanine Aminotransferase 29 IU/L (<35); Albumin 3.4 g/dL (3.5-5.0); Alkaline Phosphatase 95 U/L (38-126); Aspartate Aminotransferase 22 IU/L (14-36); BUN Creatinine Ratio 17.9 (6-22); Bilirubin Total 0.5 mg/dL (0.2-1.3); Blood Urea Nitrogen 15 mg/dL (7-17); Calcium 8.6 mg/dL (8.4-10.2); Carbon Dioxide 25 mmol/L (22-32); Chloride 104 mmol/L (98-107); Estimated Glomerular Filt Rate > 60 mL/min (>60); Globulin 3.3 g/dL (1.7-4.1); Glucose 114 mg/dL (70-100); HEMOLYSIS < 15 (0-50); Potassium 3.7 mmol/L (3.4-5.1); Sodium 135 mmol/L (137-145); Total Protein 6.7 g/dL (6.3-8.2)
[2023-04-16 19:32] LABS: NT-proBNP (BNP-Adult 18+) 138 pg/mL (<125); Troponin I < 0.012 ng/mL (0.01-0.034)
[2023-04-16] MEDS: ALBUTEROL/IPRATROPIUM 3 ML AMPUL INH (20:28)
[2023-04-16 20:46] VITALS: BP 137/63; PULSE 90; RESP 16; O2SAT 96
--- NOTE | 2023-04-16 20:47 | PC.NURSE ---
patient states that she has been feeling increasingly sob with exertion over the last couple weeks. She was in the two weeks ago for asthma. Today she feels worse and she stated that she does not feel like this is normal asthma.
[2023-04-16] MEDS: FUROSEMIDE 40 MG/4 ML VIAL IV (21:28)
[2023-04-16 21:56] LABS: Adenovirus Not Detected (Not Detect); B. parapertussis Not Detected (Not Detecte); Coronavirus 229E Not Detected (Not Detect); Coronavirus HKU1 Not Detected (Not Detect); Coronavirus NL 63 Not Detected (Not Detect); Coronavirus OC43 Not Detected (Not Detect); Human Metapneumovirus Not Detected (Not Detect); Human Rhinovirus/Enterovirus Not Detected (Not Detect); Influenza A Not Detected (Not Detect); Influenza B Not Detected (Not Detect); Parainfluenza Virus 1 Not Detected (Not Detect); Parainfluenza Virus 2 Not Detected (Not Detect); Parainfluenza Virus 3 Not Detected (Not Detect); Parainfluenza Virus 4 Not Detected (Not Detect); Respiratory Syncytial Virus Not Detected (Not Detect); SARS- CoV-2 Not Detected (Not Detecte)
[2023-04-16 21:57] LABS: Bordetella pertussis Not Detected (Not Detecte); Chlamydophila pneumoniae Not Detected (Not Detect); Mycoplasma pneumoniae Not Detected (Not Detect)
== END 2023-04-16 22:16 | disposition home or self-care (01) ==
PROVIDERS: Emergency Provider Emergency Medicine; PCP Family Medicine
DX: I50.9 Heart failure, unspecified (principal); R06.00 Dyspnea, unspecified; R05.9 Cough, unspecified; E27.8 Other specified disorders of adrenal gland; Z20.822 Contact with and (suspected) exposure to COVID-19
CPT/HCPCS: 36415; 71045; 71275; 80053; 83605; 83880; 84484; 85025; 85610; 87633; 93005; 94640; 96374; 99284; J1940; Q9967

== ENCOUNTER 2023-04-22 16:08 | Emergency (ER) | payer MEDICARE, MEDICAID, SELFPAY ==
[2023-04-22 16:20] VITALS: BP 154/70; PULSE 113; RESP 18; TEMP 36.9; O2SAT 96; BMI 42.1
--- NOTE | 2023-04-22 16:21 | ED_ITS ---
HPI - General Adult General Chief complaint: Recheck/Abnormal Lab/Rx Stated complaint: discomfort, can't find med Time Seen by Provider: 04/22/23 16:13 History of Present Illness HPI narrative: 42-year-old female daily smoker with known right lower extremity DVT, hyperlipidemia and seasonal allergies returns with a chief complaint of shortness of breath and fatigue since the beginning of March. She had been seen and evaluated a few days ago and had an extensive workup including chest x-ray demonstrating mild cardiomegaly and CHF, chest CT without PE or right heart strain but small effusion and no significant lab abnormalities. She was started on furosemide 40 mg. She had talked with her primary care provider and has a consultation with [facility] upcoming. She is here today because she complains of swelling and distention of her abdomen, increasing shortness of b reath and just does not feel right on the whole. She denies headache or blurred vision. She denies any neck pain, fever or chills. She denies chest pain but continues to be short of breath and fatigued. She has abdominal distention but no change in bowel habits. No urinary complaints. Related Data Home Medications Medication Instructions Recorded Confirmed apixaban 5 mg tablet (Eliquis) See Rx Instructions .Route .COMPLEX 07/10/21 07/17/21 albuterol sulfate 2.5 mg/3 mL 2.5 mg inhalation Q4-6H PRN 07/17/21 07/17/21 (0.083 %) solution for nebulization gabapentin 600 mg tablet 300 mg PO TID #0 tabs 07/17/21 07/17/21 (Neurontin) Previous Rx's Medication Instructions Recorded diazepam 10 mg tablet (Valium) 10 mg PO BEDTIME PRN anxiety 30 07/09/21 days #15 tabs atorvastatin 40 mg tablet (Lipitor) 40 mg PO DAILY #90 tabs 07/17/21 furosemide 40 mg tablet (Lasix) 40 mg PO DAILY #4 tabs 04/16/23 furosemide 40 mg tablet 40 mg PO DAILY #7 tabs 04/22/23 Allergies Allergy/AdvReac Type Severity Reaction Status Date / Time shellfish derived Allergy Swelling Verified 04/22/23 16:26 of Lip/Tongue/Throat trazodone AdvReac Nightmare Verified 04/22/23 16:26 Review of Systems Review of Systems Narrative: GENERAL: Denies chills, fatigue, malaise, fever, sweats. HEENT: Denies sinus pain, ear pain, sore throat, difficulty swallowing, dizziness. RESPIRATORY: See HPI CARDIOVASCULAR: Denies chest pain, palpitations, orthopnea, edema, GASTROINTESTINAL: See HPI : Denies dysuria, frequency, incontinence, hematuria, urinary retention. MUSCULOSKELETAL: denies weakness, joint pain, or bony pain SKIN: Denies rash, skin lesions, or other NEUROLOGIC: See HPI PSYCHIATRIC: No concerning psychosocial issues. 12 point review of systems is negative except for those stated above Patient History Medical History Anxiety Bipolar 1 disorder DVT (deep venous thrombosis) Social History Smoking Status: Current every day smoker Smoking Status: Current every day smoker tobacco type: cigarettes alcohol intake frequency: 0-2 drinks per day Substance Use Type: does not use Exam Initial Vital Signs Initial Vital Signs: Vital Signs Temperature 98.4 F 04/22/23 16:20 Pulse Rate 113 H 04/22/23 16:20 Respiratory Rate 18 04/22/23 16:20 Blood Pressure 154/70 H 04/22/23 16:20 Pulse Oximetry 96 04/22/23 16:20 Oxygen Delivery Method Room Air 04/22/23 16:20 GENERAL: [42] year old patient appears stated age. Well-developed patient, in mild distress. HEAD: Atraumatic. Normocephalic. EYES: Pupils equal round and reactive. Extraocular motions intact. No scleral icterus. No injection or drainage. ENT: Nose without bleeding, purulent drainage. Throat without erythema, tonsillar hypertrophy or exudate. Airway patent. NECK: Trachea midline. Non tender CARDIOVASCULAR: Regular rate and rhythm without murmurs, gallops, or rubs. RESPIRATORY: No significant work of breathing, faint crackles in bilateral bases, no hypoxemia GASTROINTESTINAL: Abdomen soft, slightly distended, nontender EXTREMITIES: 1+ pitting edema bilateral lower extremities s. BACK: Nontender without deformity or crepitance. No flank tenderness. NEURO: AOx3. SKIN: No rash or erythema of visible areas Course Orders Ordered: ED Orders 04/22/23 16:30 XR acute abdomen series Stat EKG-12 Lead Stat 04/22/23 16:40 Ammonia (NH3) Stat Comprehensive Metabolic Panel Stat Lactate (Lactic Acid) Stat Lipase Stat Magnesium Stat NT-proBNP (BNP-Adult 18+) Stat PTT Partial Thromboplastin Robin Stat Prothrombin Time INR Stat Troponin & CK Cardiac Panel Stat 04/22/23 17:36 Complete Blood Count AUTO DIFF Stat Discontinued Medications Furosemide (Furosemide 40 Mg/4 Ml Vial) 40 mg IV NOW ONE Stop: 04/22/23 18:34 Vital Signs Vital signs: Vital Signs - 8 hr 04/22/23 16:20 Temperature 98.4 F Pulse Rate 113 H Respiratory Rate 18 Blood Pressure 154/70 H Pulse Oximetry 96 Oxygen Delivery Method Room Air Medical Decision Making Lab Data 04/22/23 17:36 04/22/23 16:40 Labs: Lab Results 04/22/23 04/22/23 04/22/23 Range/Units 16:40 16:40 16:40 WBC (4.5-11.0) X10^3/uL RBC (4.0-5.2) X10^6/uL Hgb (12.0-16.0) g/dL Hct (36-46) % MCV (80-100) fL MCH (26-34) PG MCHC (30-36) % RDW (11.6-14.8) % Plt Count (150-400) X10^3/uL Neut % (Auto) (50-75) % Lymph % (Auto) (25-40) % Marion % (Auto) (3-14) % Eos % (Auto) (2-4) % Baso % (Auto) (0-2) % Neut # (Auto) (4552-8523) /uL Lymph # (Auto) (3311-7427) /uL Marion # (Auto) (0-900) /uL Eos # (Auto) (0-450) /uL Baso # (Auto) (0-100) /uL PT 11.9 (10.1-12.7) SECONDS INR 1.0 (0.9-1.3) APTT 30 (26-36) SECONDS Sodium 135 L (137-145) mmol/L Potassium 3.7 (3.4-5.1) mmol/L Chloride 100 (98-107) mmol/L Carbon Dioxide 31 (22-32) mmol/L BUN 18 H (7-17) mg/dL Creatinine 0.82 (0.52-1.04) mg/dL Estimated GFR > 60 (>60) mL/min BUN/Creatinine Ratio 22.0 (6-22) Glucose 103 H (70-100) mg/dL Lactate (0.7-2.1) mmol/L Calcium 8.7 (8.4-10.2) mg/dL Magnesium 2.0 (1.6-2.3) mg/dL Total Bilirubin 0.6 (0.2-1.3) mg/dL AST 23 (14-36) IU/L ALT 28 (<35) IU/L Alkaline Phosphatase 114 (38-126) U/L Ammonia 11 (9-30) umol/L Total Creatine Kinase 52 (30-135) U/L CK-MB (CK-2) TNP CK-MB (CK-2) Rel Index TNP Troponin I < 0.012 (0.01-0.034) ng/mL NT-Pro-B Natriuret Pep 24 (<125) pg/mL Total Protein 7.3 (6.3-8.2) g/dL Albumin 3.9 (3.5-5.0) g/dL Globulin 3.4 (1.7-4.1) g/dL Albumin/Globulin Ratio 1.1 (1.0-2.8) Lipase 309 H (23-300) U/L 04/22/23/ Range/Units 16:40 17:36 WBC 13.1 H (4.5-11.0) X10^3/uL RBC 4.76 (4.0-5.2) X10^6/uL Hgb 14.4 (12.0-16.0) g/dL Hct 41.3 (36-46) % MCV 86.7 (80-100) fL MCH 30.2 (26-34) PG MCHC 34.8 (30-36) % RDW 13.9 (11.6-14.8) % Plt Count 222 (150-400) X10^3/uL Neut % (Auto) 63.3 (50-75) % Lymph % (Auto) 25.2 (25-40) % Marion % (Auto) 4.8 (3-14) % Eos % (Auto) 6.0 H (2-4) % Baso % (Auto) 0.7 (0-2) % Neut # (Auto) 8300 H (1735-0210) /uL Lymph # (Auto) 3300 (6061-0318) /uL Marion # (Auto) 600 (0-900) /uL Eos # (Auto) 800 H (0-450) /uL Baso # (Auto) 100 (0-100) /uL PT (10.1-12.7) SECONDS INR (0.9-1.3) APTT (26-36) SECONDS Sodium (137-145) mmol/L Potassium (3.4-5.1) mmol/L Chloride (98-107) mmol/L Carbon Dioxide (22-32) mmol/L BUN (7-17) mg/dL Creatinine (0.52-1.04) mg/dL Estimated GFR (>60) mL/min BUN/Creatinine Ratio (6-22) Glucose (70-100) mg/dL Lactate 1.0 (0.7-2.1) mmol/L Calcium (8.4-10.2) mg/dL Magnesium (1.6-2.3) mg/dL Total Bilirubin (0.2-1.3) mg/dL AST (14-36) IU/L ALT (<35) IU/L Alkaline Phosphatase (38-126) U/L Ammonia (9-30) umol/L Total Creatine Kinase (30-135) U/L CK-MB (CK-2) CK-MB (CK-2) Rel Index Troponin I (0.01-0.034) ng/mL NT-Pro-B Natriuret Pep (<125) pg/mL Total Protein (6.3-8.2) g/dL Albumin (3.5-5.0) g/dL Globulin (1.7-4.1) g/dL Albumin/Globulin Ratio (1.0-2.8) Lipase (23-300) U/L MDM Narrative Medical decision making narrative: CC: 42-year-old female with ongoing shortness of breath and abdominal diste ntion Complicating co-morbidities: Prior DVT, question CHF Data collected from: Patient Medical records reviewed: Prior notes reviewed in our EMR Differential considered, but not limited to: Fluid overload versus liver abnormality versus pneumonia versus bowel obstruction versus other Exam documented above, pertinent findings include: No significant work of breathing, faint crackles in bilateral bases, heart rate regular. Abdominal distention, 4 lb weight gain, 1+ pitting edema bilateral lower extremities Lab Test results independently reviewed as above. Pertinent findings: Independently reviewed EKG as above Imaging studies independently reviewed: Imaging demonstrates large stool burden, no obstruction or significant fluid overload Treatments: Lasix Re-evaluations: Patient makes dilute urine Discussion: Patient with very reassuring history and physical exam, stable vitals, unremarkable labs and imaging. Abdominal distention likely due to increased stool burden, perhaps from restrictions of fluid intake and diuretic. She has no significant work of breathing. She did state that she has misplaced her diuretic prescription, a new Rx was sent to her pharmacy of choice. She has a scheduled appointment with cardiology in the next week or so. Disposition: see below, along with detailed discharge instructions that have been reviewed with patient as well as indications for ED re-evaluation and additional outpatient follow up Discharge Plan Departure Patient Disposition: Home Clinical Impression: Constipation, CHF (congestive heart failure) Activity Restrictions/Additional Instructions: *You have been diagnosed with [constipation, mild CHF] *What to do: *Please continue to take your regular medications as directed. [ x] New medication prescriptions sent to your pharmacy: [ [facility]] *You have been diagnosed with [ abdominal pain due to constipation ] *What to do: *Take over the counter medications as directed: 1. Metamucil - is a bulk forming laxative and adds fiber 2. Colace - softens your stool 3. Dulcolax suppository - stimulates your bowels *Follow up with your primary care provider in 2-3 days, call for appointment *Return to ER if you should have any new, worsening or concerning symptoms *Drink plenty of water and eat foods high in fiber *Stay as active as you can as this helps move your bowels as well Return to Emergency Department if you should have any new, worsening or concerning symptoms, such as [fever greater than 101 F, shaking chills, worsening pain, persistent vomiting or other bothersome symptoms] Prescriptions: New furosemide 40 mg tablet 40 mg PO DAILY Qty: 7 0RF No Action Eliquis 5 mg tablet See Rx Instructions .ROUTE .COMPLEX Rx Instructions: 2 tablets BID for 7 days then 1 tablet BID for 23 days; gabapentin [Neurontin] 600 mg tablet 300 mg PO TID Qty: 0 furosemide [Lasix] 40 mg tablet 40 mg PO DAILY Qty: 4 0RF diazepam [Valium] 10 mg tablet 10 mg PO BEDTIME PRN (Reason: anxiety) 30 Days Qty: 15 2RF albuterol sulfate 2.5 mg /3 mL (0.083 %) solution for nebulization 2.5 mg inhalation Q4-6H PRN atorvastatin [Lipitor] 40 mg tablet 40 mg PO DAILY Qty: 90 1RF Referrals: Jesse Davies DO [Primary Care Provider] - Stand Alone Forms: Patient Portal/API
--- NOTE | 2023-04-22 16:30 | DI.RAD.S_ITS ---
PROCEDURE: XR ACUTE ABDOMEN SERIES INDICATIONS: SOB, abdominal pain, distension TECHNIQUE: One view chest and two views of the abdomen were acquired. COMPARISON: None. FINDINGS: Surgical changes and devices: None. Chest: Lungs are clear. Heart size is normal. No pleural effusions. No pneumoperitoneum. Abdomen: Bowel gas pattern is normal. No suspicious calcifications. Visualized solid organ contours appear normal. Moderate stool load of the ascending colon. Bones: No suspicious bony lesions. IMPRESSION: Nonobstructive bowel gas pattern. Moderate ascending colonic stool load. Dictated by: Alan Schroeder M.D. on 04/22/2023 at 17:26 Approved by: Alan Schroeder M.D. on 04/22/2023 at 17:27
[2023-04-22 17:05] LABS: Ammonia (NH3) 11 umol/L (9-30)
[2023-04-22 17:07] LABS: Prothrombin Time 11.9 SECONDS (10.1-12.7)
[2023-04-22 17:10] LABS: PTT Partial Thromboplastin Tim 30 SECONDS (26-36)
[2023-04-22 17:11] LABS: Alanine Aminotransferase 28 IU/L (<35); Albumin 3.9 g/dL (3.5-5.0); Albumin Globulin Ratio 1.1 (1.0-2.8); Alkaline Phosphatase 114 U/L (38-126); Aspartate Aminotransferase 23 IU/L (14-36); Bilirubin Total 0.6 mg/dL (0.2-1.3); Blood Urea Nitrogen 18 mg/dL (7-17); Calcium 8.7 mg/dL (8.4-10.2); Carbon Dioxide 31 mmol/L (22-32); Chloride 100 mmol/L (98-107); Creatine Kinase 52 U/L (30-135); Estimated Glomerular Filt Rate > 60 mL/min (>60); Globulin 3.4 g/dL (1.7-4.1); Glucose 103 mg/dL (70-100); HEMOLYSIS < 15 (0-50); Lipase 309 U/L (23-300); Potassium 3.7 mmol/L (3.4-5.1); Sodium 135 mmol/L (137-145); Total Protein 7.3 g/dL (6.3-8.2)
[2023-04-22 17:23] LABS: NT-proBNP (BNP-Adult 18+) 24 pg/mL (<125); Troponin I < 0.012 ng/mL (0.01-0.034)
[2023-04-22 17:42] LABS: Add Manual Diff / Slide Review NO; Basophils Absolute Auto 100 /uL (0-100); Basophils Percent Auto 0.7 % (0-2); Eosinophils Absolute Auto 800 /uL (0-450); Hematocrit 41.3 % (36-46); Hemoglobin 14.4 g/dL (12.0-16.0); Lymphocytes Absolute Auto 3300 /uL (1100-4500); Lymphocytes Percent Auto 25.2 % (25-40); Mean Corpuscular HGB Conc 34.8 % (30-36); Mean Corpuscular Hemoglobin 30.2 PG (26-34); Mean Corpuscular Volume 86.7 fL (80-100); Monocytes Absolute Auto 600 /uL (0-900); Monocytes Percent Auto 4.8 % (3-14); Neutrophils Absolute Auto 8300 /uL (1500-7000); Neutrophils Percent Auto 63.3 % (50-75); Platelet Count 222 X10^3/uL (150-400); Red Blood Cell Count 4.76 X10^6/uL (4.0-5.2); Red Cell Distribution Width 13.9 % (11.6-14.8); White Blood Cell Count 13.1 X10^3/uL (4.5-11.0)
[2023-04-22 17:52] VITALS: PULSE 101; O2SAT 97
[2023-04-22 17:57] VITALS: BP 131/58; PULSE 91; RESP 12; O2SAT 96
[2023-04-22 18:00] VITALS: BP 124/56; PULSE 93; RESP 16; O2SAT 96
[2023-04-22 18:30] VITALS: BP 128/63; PULSE 85; RESP 17; O2SAT 94
[2023-04-22] MEDS: FUROSEMIDE 40 MG/4 ML VIAL IV (18:55)
== END 2023-04-22 18:57 | disposition home or self-care (01) ==
PROVIDERS: Emergency Provider Emergency Medicine; PCP Family Medicine
DX: I50.9 Heart failure, unspecified (principal); K59.00 Constipation, unspecified; R10.9 Unspecified abdominal pain; R07.9 Chest pain, unspecified; R60.9 Edema, unspecified; Z79.899 Other long term (current) drug therapy; Z79.01 Long term (current) use of anticoagulants
CPT/HCPCS: 36415; 74022; 80053; 82140; 82550; 83605; 83690; 83735; 83880; 84484; 85025; 85610; 85730; 93005; 96374; 99284; J1940